=== PATIENT | male | born 1930 | race Asian ===

== ENCOUNTER 2017-02-16 19:08 | Inpatient (IN) | payer MEDICARE, BC ==
[~2017-02-16] VITALS: Ht 157.5 cm; Wt 49.5 kg
[~2017-02-16 19:08] MED LIST: BRIM10DR12 BOTH EYES; FLUO60OI5 TOP; LORA0.5T PO; MENT71OI TP; OMEP20CA16 PO; PRAV40TA76 PO; QUET50TA16 PO
[2017-02-16 21:20] VITALS: Ht 157.5 cm; Wt 49.5 kg
[2017-02-16 21:31] VITALS: BP 154/74; RESP 19
[2017-02-16] MEDS ORDERED: BISACODYL (EC) 5 MG TAB PO PRN (22:00)
[2017-02-16] MEDS ORDERED: MAGNESIUM HYDROXIDE 30ML CUP PO PRN (22:00)
[2017-02-16] MEDS ORDERED: ONDANSETRON 4 MG INJ IV PRN (22:00)
[2017-02-16] MEDS ORDERED: morphine 2 MG INJ IV PRN (22:00)
[2017-02-16] MEDS: AMLODIPINE 5 MG TAB PO SCH (23:13)
[2017-02-16] MEDS: DOCUSATE SODIUM 100 MG CAP PO SCH (23:13)
[2017-02-16] MEDS: QUETIAPINE 25 MG TAB PO SCH (23:13)
[2017-02-16] MEDS: ACETAMINOPHEN 325 MG TAB PO PRN (23:14)
[2017-02-16] MEDS: HEPARIN 5,000 UNIT/0.5 ML SYG SC SCH (23:24)
[2017-02-17 01:58] LABS: ADD UMIC YES; URINE BILIRUBIN (Dip) NEGATIVE (NEGATIVE); URINE BLOOD (Dip) 3+ (NEGATIVE); URINE COLOR LT. YELLOW (YELLOW); URINE GLUCOSE (Dip) NEGATIVE (NEGATIVE); URINE KETONES (Dip) NEGATIVE (NEGATIVE); URINE LEUKOCYTE ESTERASE (Dip) NEGATIVE (NEGATIVE); URINE NITRITE (Dip) NEGATIVE (NEGATIVE); URINE TOTAL PROTEIN (Dip) 1+ (NEGATIVE); URINE UROBILINOGEN (Dip) 1.0 E.U./dL (0.1-1.0)
[2017-02-17 02:15] LABS: SQUAMOUS EPITHELIAL CELL,UR MANY; URINE RBCS >50 /HPF (0)
[2017-02-17 02:16] LABS: BACTERIA,URINE OCCASIONAL
[2017-02-17] MEDS: PANTOPRAZOLE (EC) 40 MG TAB PO SCH (06:16)
[2017-02-17] MEDS: HEPARIN 5,000 UNIT/0.5 ML SYG SC SCH ×3 (06:21→21:09)
[2017-02-17 07:29] LABS: ADD SCAN DIFF NO
[2017-02-17 07:30] VITALS: BP 146/74; RESP 18
[2017-02-17 07:36] LABS: BASOPHILS % 0.2 % (0.0-2.0); EOSINOPHILS # 0.2 10^3/ul (0.0-0.5); EOSINOPHILS % 2.9 % (0.0-7.0); HEMATOCRIT 30.9 % (42.0-52.0); HEMOGLOBIN 10.1 g/dl (14.0-18.0); LYMPHOCYTES # 1.3 10^3/ul (0.8-2.9); LYMPHOCYTES % 21.7 % (15.0-51.0); MEAN CORPUSCULAR HEMOGLOBIN 30.2 pg (29.0-33.0); MEAN CORPUSCULAR HGB CONC 32.7 g/dl (32.0-37.0); MEAN CORPUSCULAR VOLUME 92.5 fl (82.0-101.0); MONOCYTE # 0.6 10^3/ul (0.3-0.9); MONOCYTES % 9.6 % (0.0-11.0); NEUTROPHIL # 3.9 10^3/ul (1.6-7.5); NEUTROPHILS % 65.3 % (39.0-77.0); PLATELET COUNT 310 10^3/UL (140-415); RED BLOOD COUNT 3.34 10^6/ul (4.70-6.10); RED CELL DISTRIBUTION WIDTH 13.7 % (11.5-14.5)
[2017-02-17 07:54] LABS: ALBUMIN 2.7 g/dl (3.3-4.9)
[2017-02-17 07:57] LABS: ALBUMIN/GLOBULIN RATIO 0.81; BILIRUBIN,INDIRECT 0.5 mg/dl (0-1.1); BILIRUBIN,TOTAL 0.5 mg/dl (0.2-1.3); CALCIUM 8.5 mg/dl (8.4-10.2); CREATININE 1.42 mg/dl (0.61-1.24)
[2017-02-17] MEDS ORDERED: BACITRACIN 0.9 GM OINT TOP SCH (09:00)
[2017-02-17] MEDS ORDERED: BACITRACIN 0.5%/ZINC 28.35 GM OINT TOP SCH (09:00)
[2017-02-17] MEDS: DOCUSATE SODIUM 100 MG CAP PO SCH ×2 (10:09→21:00)
[2017-02-17] MEDS: ASPIRIN 81 MG TAB PO SCH (10:09)
[2017-02-17] MEDS: FERROUS SULFATE (EC) 325 MG TAB PO SCH (10:09)
[2017-02-17] MEDS: POLYETHYLENE GLYCOL 17 GM PACKET PO SCH (10:10)
[2017-02-17] MEDS: AMLODIPINE 5 MG TAB PO SCH ×2 (10:10→21:01)
[2017-02-17] MEDS: BACITRACIN 0.9 GM OINT TOP SCH (10:11)
--- NOTE | 2017-02-17 12:49 | CONS ---
DATE OF ADMISSION: 02/16/2017 DATE OF CONSULTATION: 02/17/2017 TYPE OF CONSULTATION:. REHABILITATION POST-ADMISSION PHYSICIAN EVALUATION REHABILITATION IMPAIRMENT CATEGORY: Left subcapital hip fracture with displacement, status post hem iarthroplasty. ACTIVE COMORBIDITIES: 1. Anemia. 2. Dysphagia. 3. Hypertension. 4. History of psychiatric disorder. 5. Urinary tract infection. 6. History of renal failure. 7. Coronary artery disease. 8. Impairments in self-care, mobility and cognition. HISTORY OF PRESENT ILLNESS: The patient is a pleasant 86-year-old gentleman with a history of multi ple medical comorbidities, who is status post a mechanical fall with resultant left subcapital displ aced hip fracture. The patient underwent a left hip hemiarthroplasty on 02/11/2017. His postoperat talita course has been notable for low grade fever, anemia requiring transfusion, and significant impai rments in self-care and mobility as compared to baseline. The patient has been cleared to transfer to the rehabilitation unit for comprehensive interdisciplinary rehab care. FUNCTIONAL HISTORY: Prior to recent events, he was independent in self-care tasks and mobility. Cu rrently, he requires maximal assist for self-care activities, moderate to maximal assist for mobilit y tasks. I have reviewed the preadmission screen and the patient's current functional status is consistent wi th the preadmission screen. SOCIAL HISTORY: The patient lives in an assisted living facility and hopes to return there upon dis charge. PAST MEDICAL HISTORY: 1. Hypertension. 2. Coronary artery disease. 3. History of psychiatric disorder. 4. Chronic kidney disease. CURRENT MEDICATIONS: 1. Apresoline 25 mg p.o. every 4 hours p.r.n. 2. Norvasc 5 mg p.o. b.i.d. 3. MiraLax. 4. Morphine p.r.n. 5. Bacitracin topically. 6. Protonix 40 mg p.o. daily. 7. Aspirin 81 mg p.o. daily. 8. Seroquel 50 mg p.o. at bedtime. 9. Colace 100 mg p.o. b.i.d. 10. Ferrous sulfate 325 p.o. daily. ALLERGIES: THE PATIENT WITH NO KNOWN DRUG ALLERGIES. PHYSICAL EXAMINATION: VITAL SIGNS: The patient is currently afebrile with stable vital signs. HEENT: Extraocular motions are intact. Oropharynx clear. NECK: Supple. LUNGS: Clear anteriorly. CARDIAC: S1, S2. ABDOMEN: Soft, nontender, positive bowel sounds. NEUROLOGIC: He is awake and alert. He is oriented to person only. He will follow simple 1-step co mmands. He demonstrates antigravity strength in bilateral upper extremity and the right lower extre mity. Dorsiflexion and plantar flexion intact on the left. PLAN: The patient has been admitted for comprehensive interdisciplinary acute rehab and is anticipa adonis to tolerate 3 hours of daily therapy in divided doses for at least 5 out of 7 days a week. The treatment plan will include: 1. Physical therapy to focus on bed mobility, transfers, and household ambulation with the goal of having the patient reach standby assist level. 2. Occupational therapy to focus on hygiene, grooming, dressing, bathing, and toileting activities with the goal of having the patient reach standby assist level. 3. Speech therapy for full dysphasia and cognitive evaluation and management with the goal of havin g the patient return to baseline cognition and meet nutritional needs by mouth. 4. Rehabilitation nursing for carryover of therapeutic interventions, the goal of continent of sandrita l and bladder, and the goal of pain adequately managed on oral medications. REHABILITATION BARRIER: Dysphagia. INTERVENTION FOR BARRIER: Speech therapy. ESTIMATED LENGTH OF STAY: 14 days. DISPOSITION GOAL: Home. I acknowledge that I performed a full physical examination on this patient within 24 hours of admiss ion to the rehabilitation unit. I believe the patient is a good candidate for comprehensive interdi sciplinary rehab care and is anticipated to make reasonable goals in a reasonable period of time as outlined above. Dictated By: JUVENTINO VINES/LANI Conf#: [id number] DID#: [id number] CC: KATY HANSEN MD;*EndCC*
--- NOTE | 2017-02-17 18:32 | HP ---
DATE OF ADMISSION: 02/16/2017 REASON FOR ADMISSION: Left hip fracture status post hemiarthroplasty. Comes for rehab. HISTORY OF PRESENT ILLNESS: The patient is an 86-year-old [place] male with history of dementia, h ypertension, dyslipidemia, CKD, anemia, psychiatric disorder who resides at the [facility]. The patient was in usual state of health up until 02/10/2013 when he pres ented to the emergency department at [facility] status post fall. He was found to h ave a left hip fracture. The patient was seen by Dr. Renee and Dr. Fitch for preop clearance and patient underwent left hemiarthroplasty. Postop, the patient was transfused 2 units of PRBC, slowl y improved. It was decided to send him to the acute rehab for physical therapy, occupational therap y and help with activities of daily living. The patient is admitted for further care. PAST MEDICAL HISTORY: Includes CKD, hypertension, psychiatric disorder, dyslipidemia and dementia, also anemia, gastroesophageal reflux disease and history of glaucoma. ALLERGIES: NO KNOWN DRUG ALLERGIES. SURGICAL HISTORY: Left hip hemiarthroplasty. SOCIAL HISTORY: He initially denies tobacco, alcohol or IV drug use, but looking at the old medical records at [facility], he was a former smoker. Again, the patient is a somewhat poor historian. I have been in touch with the patient's on a regular basis while the patient w as at [facility]. FAMILY HISTORY: The patient cannot recall. The patient's parents are . MEDICATIONS: The patient's current medication upon discharge from [facility] includ e the followin. Aspirin 81 mg daily. 2. MiraLax 17 grams daily. 3. Zolpidem 5 daily. 4. Bacitracin daily. 5. Protonix 40 mg daily. 6. Seroquel 50 at bedtime. 7. Colace 100 b.i.d. 8. Norvasc 5 mg b.i.d. 9. Tylenol p.r.n. 10. Zofran p.r.n. 11. Heparin 5000 units subq q.12h. 12. Dulcolax p.r.n. 13. Hydralazine p.r.n. 14. Milk of magnesia p.r.n. 15. Morphine sulfate p.r.n. REVIEW OF SYSTEMS: Limited secondary to patient's condition. Upon evaluation, the patient currentl y with no complaints, currently denies any pain, denies any chest pain or shortness of breath. Agai n, the patient is a poor historian. PHYSICAL EXAMINATION: VITAL SIGNS: Temperature yesterday evening: T-max was 100.2, so he had a low grade fever, recent te mperature this morning, temperature 98.3, pulse is 79, respirations 18, blood pressure 146/74, satur ation 97% on room air. GENERAL: The patient is pale, in no acute distress. CARDIOVASCULAR: S1 and S2. Positive systolic ejection murmur heard throughout. LUNGS: Clear bilaterally. ABDOMEN: Soft, nontender. EXTREMITIES: No clubbing, cyanosis, or edema. Lower extremity in a special support. LABORATORY DATA: White count is 6, hemoglobin 10.1, hematocrit 31, platelet count 310, neutrophils 65%, lymphocytes 22%. Chemistry: Sodium is 143, potassium 4.0, chloride 104, bicarbonate 30, BUN i s 40, creatinine 1.42, glucose of 100, calcium 8.5, AST 36, ALT 22, alkaline phosphatase 113. Album in 2.7. Prealbumin is low at 13. UA shows RBC greater than 50, WBC 0 to 2. Many epithelial cells, occasional bacteria. Urine hemoglobin +3, slightly cloudy urine. MRSA screening is pending. Look ing at all records here at [facility], CT scan of abdomen and pelvis on 10/18/2015 , shows rectum is markedly distended and stool filled suggestive of severe constipation with choleli thiasis, coronary artery calcification, possibly mildly enlarged. Renal ultrasound in 2015, just sh ows small nonobstructing bilateral renal calculi, otherwise unremarkable study. Carotid ultrasound in 2015, also shows mild to moderate atherosclerosis disease bilaterally, no hemodynamically signifi cant stenosis. CAT scan back in 2015, also shows moderate cerebral volume loss and scattered and mo derate intracranial atherosclerosis and mild chronic small vessel ischemic changes. ASSESSMENT AND PLAN: 1. This is an 86-year-old [place] male with history of chronic kidney disease, dementia, anemia, p sychiatric disorder, status post left hip hemiarthroplasty secondary to fracture. 2. Status post left hip hemiarthroplasty patient to undergo physical therapy, occupational therapy and help with activities of daily living with a goal for him to go back to the assisted living facil it. Will continue deep vein thrombosis prophylaxis and gastrointestinal prophylaxis. If he is ref using heparin, may consider oral deep venous thrombosis prophylaxis such as Xarelto. 3. Anemia. Monitor hemoglobin and hematocrit. Patient is status post 2 units of PRBC at [facility]. H and H appears to be stable. 4. Chronic kidney disease, observe. May consider fluid challenge. 5. Moderate protein malnutrition with low prealbumin. Try to maximize the patient's nutrition stat us. Dietitian will be consulted, add supplements. 6. The patient will be placed on deep vein thrombosis prophylaxis and gastrointestinal prophylaxis. 7. Psychiatric disorder. Continue Seroquel at night. 8. Microscopic hematuria. We will follow up urine culture results. Recent CT scan of the chest, a bdomen and pelvis done at [facility] did not reveal any significant abnormality besi torsten constipation. We will communicate with the patient's regarding patient's condition and francois n of care. 9. Hypertension. Continue amlodipine. Aspirin for cardiac protection and p.r.n. hydralazine. Josh p patient comfortable with pain medication as needed. The patient hopefully will participate with p hysical therapy. 10. Low grade fever. Will observe. This may be atelectasis versus other. White count remains nor mal. We will follow. Dictated By: KATY CORNEJO/LANI Conf#: [id number] DID#: [id number]
[2017-02-17 19:42] VITALS: BP 149/69; RESP 20
[2017-02-17] MEDS: ACETAMINOPHEN 325 MG TAB PO PRN (20:59)
[2017-02-17] MEDS: QUETIAPINE 25 MG TAB PO SCH (21:00)
--- NOTE | 2017-02-17 23:11 | CONS ---
DATE OF ADMISSION: 02/16/2017 DATE OF CONSULTATION: 02/17/2017 TYPE OF CONSULTATION: Psychological. REFERRING PHYSICIAN: Zoey Gamez MD CONSULTING PSYCHOLOGIST: Dalia Vasquez, PhD REASON FOR CONSULTATION: This consultation was requested by Dr. Yuriy Gamez, in order to evaluate the cognitive and emotional functioning of this patient related to his present medical condition. HISTORY OF PRESENT ILLNESS: The patient is an 86-year-old male. The patient has a history of hyper tension, CKD, psychiatric disorder, and dyslipidemia. The patient does currently reside in an [facility] living facility. The patient had sustained a fall and did fracture his left hip. The patient w as cleared medically and then transferred to the acute rehabilitation unit for acute multidisciplina ry rehabilitation. The patient was pleasant and motivated to get better. The patient did want to t ry to function as well as he could. The patient was very cooperative. FAMILY/SOCIAL HISTORY: The patient reports that he is living in an assisted living facility. The p atient actually thought that he was living in [place] at the present time. The patient did show good deal of confusion. The patient does want to return home to the assisted living facility when he is discharged. MEDICATIONS: The patient is currently on Seroquel 50 mg at bedtime. SUBSTANCE USE: The patient reports that he does not use alcohol or other drugs. The patient report s he does not smoke. MENTAL STATUS EXAMINATION: APPEARANCE: The patient was seen in his wheelchair. He was of average height and weight. The jonathan ent has alvarado hair, with a olivia and mustache. The patient is right-handed. BEHAVIOR: The patient was cooperative during the consultation. The patient, even though confused, did try to answer all questions presented to him by the interviewer. MOOD AND AFFECT: The patient's mood appears to be depressed. Affect does appear to be slightly anx ious. PERCEPTION: The patient reports no hallucinations or delusions. The patient was alert to person, b ut not exactly to place, situation, and time. MEMORY AND COGNITION: The patient's memory and cognition appear to be impaired. He did have diffic ulty recalling recent and remote events. The patient did think that he was living in a home in [facility]. The patient could not state the hospital name. The patient could not say the month or the year . INTELLIGENCE: Appears to fall in the average range when he was functioning adequately. INSIGHT: Poor. THOUGHT CONTENT: The patient is concerned about his present medical condition, the patient does wan t to return to his previous level of functioning, and does want to return back to his previous livin g situation. The patient is confused and does not really know what is happening around him at the p resent time. DISCUSSION: The patient may be able to benefit from some cognitive/behavioral psychotherapy while solitario wells is on the unit. This psychotherapy would focus on his cognition and mood, would be an attempt to help him increase his level of understanding and focus, as well as try to help him increase his mood . DIAGNOSTIC IMPRESSION: 1. 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 2. F03.90: Unspecified dementia without behavioral disturbance. Thank you very much, Dr. Yuriy Gamez, for referring this individual. Please do not hesitate to ca ll if you have any additional questions. Dictated By: DALIA VASQUEZ PHD SHARMILA/LANI Conf#: [id number] DID#: [id number]
[2017-02-18] MEDS: PANTOPRAZOLE (EC) 40 MG TAB PO SCH (05:33)
[2017-02-18 07:30] VITALS: BP 164/75; RESP 18
[2017-02-18] MEDS: POLYETHYLENE GLYCOL 17 GM PACKET PO SCH (09:54)
[2017-02-18] MEDS: FERROUS SULFATE (EC) 325 MG TAB PO SCH (09:54)
[2017-02-18] MEDS: DOCUSATE SODIUM 100 MG CAP PO SCH ×2 (09:54→20:50)
[2017-02-18] MEDS: BACITRACIN 0.9 GM OINT TOP SCH (09:54)
[2017-02-18] MEDS: AMLODIPINE 5 MG TAB PO SCH ×2 (09:55→20:53)
[2017-02-18] MEDS: ASPIRIN 81 MG TAB PO SCH (09:55)
[2017-02-18] MEDS: HEPARIN 5,000 UNIT/0.5 ML SYG SC SCH ×2 (09:57→20:56)
--- NOTE | 2017-02-18 13:28 | CONS ---
Date/Time of Note Date/Time of Note DATE: 02/18/17 TIME: 13:26 Consult Date/Type/Reason Admit Date/Time Feb 16, 2017 at 20:53 Initial Consult Date Subjective Patient comfortable Objective pulm-cta abd-soft max/dep transfer Vital Signs Date Time Temp Pulse Resp B/P Pulse Ox O2 Delivery O2 Flow Rate FiO2 02/17/17 19:42 98.0 69 20 149/69 99 Intake and Output 02/17/17 02/17/17 02/18/17 15:00 23:00 07:00 Intake Total 200 ml 560 ml Balance 200 ml 560 ml Results/Medications Result Diagram: 02/17/17 0612 02/17/17 0612 Medications Current Medications Ondansetron HCl (Zofran Inj) 4 mg Q4H PRN IV NAUSEA AND/OR VOMITING; Start at 22:00 Pantoprazole (Protonix Tab) 40 mg DAILY@06 PO Last administered on 02/18/17 05 :33; Admin Dose 40 MG; Start 02/17/17 at 06:00 Aspirin (Aspirin) 81 mg DAILY PO Last administered on 02/18/17 09:55; Admin Dose 81 MG; Start 02/17/17 at 09:00 Quetiapine Fumarate (Seroquel) 50 mg HS PO Last administered on 02/17/17 21:00 ; Admin Dose 50 MG; Start 02/16/17 at 23:00 Docusate Sodium (Colace) 100 mg BID PO Last administered on 02/18/17 09:54; Admin Dose 100 MG; Start 02/16/17 at 23:00 Bisacodyl (Dulcolax) 5 mg DAILY PRN PO CONSTIPATION; Start 02/16/17 at 22:00 Hydralazine HCl (Apresoline) 25 mg Q4 PRN PO ELEVATED SYSTOLIC BP; Start at 22:00 Amlodipine Besylate (Norvasc) 5 mg BID PO Last administered on 02/18/17 09:55 ; Admin Dose 5 MG; Start 02/16/17 at 23:00 Polyethylene Glycol (Miralax) 17 gm DAILY PO Last administered on 02/18/17 09: 54; Admin Dose 17 GM; Start 02/17/17 at 09:00 Magnesium Hydroxide (Milk Of Mag) 30 ml DAILY PRN PO CONSTIPATION; Start at 22:00 Morphine Sulfate (morphine) 2 mg Q8 PRN IV PAIN LEVEL 7-10; Start 02/16/17 at 22:00 Ferrous Sulfate (Ferrous Sulfate (Ec)) 325 mg DAILY PO Last administered on 09:54; Admin Dose 325 MG; Start 02/17/17 at 09:00 Acetaminophen (Tylenol Tab) 650 mg Q6H PRN PO PAIN AND OR ELEVATED TEMP Last administered on 02/17/17 20:59; Admin Dose 650 MG; Start 02/16/17 at 22:30 Bacitracin (Bacitracin Oint (Ud)) 1 applic AM TOP Last administered on 09:54; Admin Dose 1 APPLIC; Start 02/17/17 at 09:00 Heparin Sodium (Porcine) (Heparin (5000 Units/0.5 ml)) 5,000 unit Q12 SC Last administered on 02/18/17 09:57; Admin Dose 5,000 UNIT; Start 02/17/17 at 21:00 Assessment/Plan Additional Assessment/Plan Rehab- Left subcapital hip fracture with displacement, status post hemiarthroplasty. Continue rehab activities Anemia. Dysphagia-speech therapy Hypertension. History of psychiatric disorder. Urinary tract infection. Coronary artery disease. JUEVNTINO CARR MD Feb 18, 2017 13:28
--- NOTE | 2017-02-18 19:51 | PN ---
DATE: 02/17/2017 SUBJECTIVE: The patient seen and overall with no complaints. Case discussed in detail with nursing staff. The patient needs assistance with feeding as he is alert to himself mostly, confused. Need s a lot of care as discussed with nursing staff. PHYSICAL EXAMINATION: VITAL SIGNS: The patient's temperature 97.5, pulse 65, respirations 18, blood pressure 164/75, satu ration 100% on room air. GENERAL: No acute distress. HEENT: Normocephalic, atraumatic. The patient is pale. CARDIOVASCULAR: S1, S2. Regular rate. LUNGS: Clear. ABDOMEN: Soft, nontender. EXTREMITIES: No clubbing, cyanosis or edema. LABORATORY DATA: Labs dated yesterday were reviewed. BUN and creatinine were 40 over 1.42 with a p realbumin of 13. UA shows RBCs greater than 50; nitrite, leukocyte esterase negative. Urine cultur e, MRSA of the nares were negative. MEDICATIONS: Include: 1. Heparin 5000 units subQ q.12. 2. Aspirin 81 mg daily. 3. MiraLax 17 grams daily. 4. Ferrous sulfate 300 mg daily. 5. Bacitracin daily. 6. Protonix 40 mg daily. 7. Seroquel 50 at bedtime. 8. Colace 100 b.i.d. 9. Norvasc 5 mg b.i.d. 10. Tylenol p.r.n. 11. Zofran p.r.n. 12. Dulcolax p.r.n. 13. Hydralazine p.r.n. 14. Milk of magnesia p.r.n. 15. Morphine p.r.n. ASSESSMENT AND PLAN: This is an 86-year-old [place] male with history of chronic kidney disease, d ementia, anemia, psychiatric disorder, status post left hip hemiarthroplasty secondary to fracture. 1. Status post left hip hemiarthroplasty. Undergoing physical therapy, occupational therapy, speec h therapy. Help with activities of daily living. 2. Continue deep vein thrombosis prophylaxis and gastrointestinal prophylaxis. 3. Anemia. Continue iron supplements. Monitor hemoglobin and hematocrit. 4. Chronic kidney disease with acute component possibly. Monitor patient's p.o. intake. Follow up electrolytes and kidney function soon. 5. Moderate protein malnutrition with low albumin. Try to maximize the patient's nutrition status. Needs help with feeding. 6. Psychiatric disorder. Continue Seroquel at night. I appreciate Dr. Vasquez's psychology evaluati on. Impression was mood disorder due to hip fracture with depressive features, unspecified dementia without behavioral disturbances. 7. Afebrile, currently no evidence of infection. Continue incentive spirometer as tolerated. Cont inue to monitor conditions. Overall appears to be stable. 8. Hypertension. Titrate medications up as currently he is taking amlodipine 5 mg daily. May put him on routine hydralazine. We will follow. Dictated By: KATY CORNEJO/LANI Conf#: [id number] DID#: [id number]
[2017-02-18 20:00] VITALS: BP 145/77; RESP 20
[2017-02-18] MEDS: QUETIAPINE 25 MG TAB PO SCH (20:54)
[2017-02-19] MEDS: PANTOPRAZOLE (EC) 40 MG TAB PO SCH (06:01)
[2017-02-19 07:47] VITALS: BP 144/69; RESP 18
[2017-02-19] MEDS: BACITRACIN 0.9 GM OINT TOP SCH (09:00)
[2017-02-19] MEDS: POLYETHYLENE GLYCOL 17 GM PACKET PO SCH (09:34)
[2017-02-19] MEDS: ASPIRIN 81 MG TAB PO SCH (09:34)
[2017-02-19] MEDS: AMLODIPINE 5 MG TAB PO SCH ×2 (09:35→21:13)
[2017-02-19] MEDS: FERROUS SULFATE (EC) 325 MG TAB PO SCH (09:35)
[2017-02-19] MEDS: DOCUSATE SODIUM 100 MG CAP PO SCH ×2 (09:35→21:12)
[2017-02-19] MEDS: HEPARIN 5,000 UNIT/0.5 ML SYG SC SCH ×2 (09:38→21:20)
--- NOTE | 2017-02-19 12:51 | CONS ---
Date/Time of Note Date/Time of Note DATE: 02/19/17 TIME: 12:50 Consult Date/Type/Reason Admit Date/Time Feb 16, 2017 at 20:53 Subjective Comfortable Objective pulm- cta max assist Vital Signs Date Time Temp Pulse Resp B/P Pulse Ox O2 Delivery O2 Flow Rate FiO2 02/19/17 07:47 98.0 68 18 144/69 94 Intake and Output 02/18/17 02/18/17 02/19/17 15:00 23:00 07:00 Intake Total 620 ml 240 ml Balance 620 ml 240 ml Results/Medications Result Diagram: 02/17/1761102/17/17611 Medications Current Medications Ondansetron HCl (Zofran Inj) 4 mg Q4H PRN IV NAUSEA AND/OR VOMITING; Start at 22:00 Pantoprazole (Protonix Tab) 40 mg DAILY@06 PO Last administered on 02/19/17 06 :01; Admin Dose 40 MG; Start 02/17/17 at 06:00 Aspirin (Aspirin) 81 mg DAILY PO Last administered on 02/19/17 09:34; Admin Dose 81 MG; Start 02/17/17 at 09:00 Quetiapine Fumarate (Seroquel) 50 mg HS PO Last administered on 02/18/17 20:54 ; Admin Dose 50 MG; Start 02/16/17 at 23:00 Docusate Sodium (Colace) 100 mg BID PO Last administered on 02/19/17 09:35; Admin Dose 100 MG; Start 02/16/17 at 23:00 Bisacodyl (Dulcolax) 5 mg DAILY PRN PO CONSTIPATION Last administered on 20:54; Admin Dose 5 MG; Start 02/16/17 at 22:00 Hydralazine HCl (Apresoline) 25 mg Q4 PRN PO ELEVATED SYSTOLIC BP; Start at 22:00 Amlodipine Besylate (Norvasc) 5 mg BID PO Last administered on 02/19/17 09:35 ; Admin Dose 5 MG; Start 02/16/17 at 23:00 Polyethylene Glycol (Miralax) 17 gm DAILY PO Last administered on 02/19/17 09: 34; Admin Dose 17 GM; Start 02/17/17 at 09:00 Magnesium Hydroxide (Milk Of Mag) 30 ml DAILY PRN PO CONSTIPATION Last administered on 02/19/17 06:01; Admin Dose 30 ML; Start 02/16/17 at 22:00 Morphine Sulfate (morphine) 2 mg Q8 PRN IV PAIN LEVEL 7-10; Start 02/16/17 at 22:00 Ferrous Sulfate (Ferrous Sulfate (Ec)) 325 mg DAILY PO Last administered on 09:35; Admin Dose 325 MG; Start 02/17/17 at 09:00 Acetaminophen (Tylenol Tab) 650 mg Q6H PRN PO PAIN AND OR ELEVATED TEMP Last administered on 02/17/17 20:59; Admin Dose 650 MG; Start 02/16/17 at 22:30 Bacitracin (Bacitracin Oint (Ud)) 1 applic AM TOP Last administered on 09:54; Admin Dose 1 APPLIC; Start 02/17/17 at 09:00 Heparin Sodium (Porcine) (Heparin (5000 Units/0.5 ml)) 5,000 unit Q12 SC Last administered on 02/19/17 09:38; Admin Dose 5,000 UNIT; Start 02/17/17 at 21:00 Hydralazine HCl (Apresoline) 25 mg TID PO Last administered on 02/19/17 09:36 ; Admin Dose 25 MG; Start 02/18/17 at 21:00 Assessment/Plan Additional Assessment/Plan Rehab- Left subcapital hip fracture with displacement, status post hemiarthroplasty. Increase rehab activities as tolerated Anemia. Dysphagia-speech therapy Hypertension. History of psychiatric disorder. Urinary tract infection. Coronary artery disease. JUVENTINO CARR MD Feb 19, 2017 12:51
--- NOTE | 2017-02-19 17:50 | PN ---
DATE: 02/19/2017 SUBJECTIVE: Patient seen, no complaints. He had a temperature of 100.2 upon admission, but since t hen he is afebrile. PHYSICAL EXAMINATION: VITAL SIGNS: Temperature 98, pulse 60, respirations 18, blood pressure 144/69, saturation 94%. GENERAL: No acute distress. HEENT: Normocephalic, atraumatic. The patient is pale. CARDIOVASCULAR: Positive S1 and S2, regular rate. LUNGS: Clear. ABDOMEN: Soft, nontender. EXTREMITIES: No clubbing, cyanosis, or edema. LABORATORY DATA: On admission revealed white count was 6, hemoglobin 10.1, prealbumin was low at 13 . Urine culture negative. MRSA of the nares negative. MEDICATIONS: Include: 1. Hydralazine 25 t.i.d. 2. Heparin 5000 subq q. 3. Aspirin daily. 4. MiraLax 17 grams daily. 5. Ferrous sulfate 325 mg daily. 6. Bacitracin daily. 7. Protonix 40 mg daily. 8. Seroquel 50 at bedtime. 9. Colace 100 b.i.d. 10. Norvasc 5 mg b.i.d. 11. Tylenol p.r.n. 12. Zofran p.r.n. 13. Colace p.r.n. 14. Hydralazine p.r.n. 15. Milk of magnesia p.r.n. 16. Morphine p.r.n. ASSESSMENT AND PLAN: 1. This is an 86-year-old Mong[place]ian male with history of chronic kidney disease, dementia, anemia, p sychiatric disorder, status post left hip hemiarthroplasty secondary to fracture. 2. Status post left hip hemiarthroplasty. Continue physical therapy, occupational therapy, pain co ntrol. 3. Continue deep vein thrombosis prophylaxis and gastrointestinal prophylaxis. 4. Anemia. Continue iron supplements. Monitor hemoglobin and hematocrit, check a.m. labs tomorrow . 5. Chronic kidney disease, monitor electrolytes. 6. Moderate protein malnutrition with low prealbumin. Try to maximize the patient's nutrition stat us. Dietitian to follow. 7. Psychiatric disorder. Continue Seroquel. 8. Hypertension. I added hydralazine routine, blood pressure improved. 9. Continue stool softeners. We will follow. Dictated By: KATY CORNEJO/LANI Conf#: [id number] DID#: [id number]
[2017-02-19] MEDS ORDERED: BISACODYL 10 MG SUPP PR PRN (19:30)
[2017-02-19 19:50] VITALS: BP 123/59; RESP 19
[2017-02-19] MEDS: ACETAMINOPHEN 325 MG TAB PO PRN (21:11)
[2017-02-19] MEDS: QUETIAPINE 25 MG TAB PO SCH (21:12)
[2017-02-20] MEDS: PANTOPRAZOLE (EC) 40 MG TAB PO SCH (05:18)
[2017-02-20 06:40] LABS: ADD SCAN DIFF NO
[2017-02-20 06:44] LABS: BASOPHILS % 0.3 % (0.0-2.0); EOSINOPHILS # 0.2 10^3/ul (0.0-0.5); EOSINOPHILS % 2.8 % (0.0-7.0); HEMATOCRIT 32.1 % (42.0-52.0); HEMOGLOBIN 10.5 g/dl (14.0-18.0); LYMPHOCYTES # 1.4 10^3/ul (0.8-2.9); LYMPHOCYTES % 22.2 % (15.0-51.0); MEAN CORPUSCULAR HEMOGLOBIN 30.3 pg (29.0-33.0); MEAN CORPUSCULAR HGB CONC 32.7 g/dl (32.0-37.0); MEAN CORPUSCULAR VOLUME 92.8 fl (82.0-101.0); MEAN PLATELET VOLUME 8.9 fl (7.4-10.4); MONOCYTE # 0.5 10^3/ul (0.3-0.9); MONOCYTES % 7.3 % (0.0-11.0); NEUTROPHIL # 4.3 10^3/ul (1.6-7.5); NEUTROPHILS % 66.3 % (39.0-77.0); PLATELET COUNT 426 10^3/UL (140-415); RED BLOOD COUNT 3.46 10^6/ul (4.70-6.10); RED CELL DISTRIBUTION WIDTH 13.9 % (11.5-14.5); WHITE BLOOD COUNT 6.4 10^3/ul (4.8-10.8)
[2017-02-20 06:55] LABS: POTASSIUM 4.7 mmol/L (3.5-5.1)
[2017-02-20 06:58] LABS: CREATININE 1.39 mg/dl (0.61-1.24)
[2017-02-20 06:59] LABS: CALCIUM 8.6 mg/dl (8.4-10.2)
[2017-02-20 07:00] LABS: MAGNESIUM 2.6 mg/dl (1.7-2.5); PHOSPHORUS 4.1 mg/dl (2.5-4.9)
[2017-02-20] MEDS: DOCUSATE SODIUM 100 MG CAP PO SCH ×2 (09:00→20:45)
[2017-02-20] MEDS: POLYETHYLENE GLYCOL 17 GM PACKET PO SCH (09:00)
[2017-02-20] MEDS: FERROUS SULFATE (EC) 325 MG TAB PO SCH (09:19)
[2017-02-20] MEDS: AMLODIPINE 5 MG TAB PO SCH ×2 (09:19→20:44)
[2017-02-20] MEDS: ASPIRIN 81 MG TAB PO SCH (09:19)
[2017-02-20] MEDS: HEPARIN 5,000 UNIT/0.5 ML SYG SC SCH ×2 (09:27→20:50)
[2017-02-20] MEDS: BACITRACIN 0.9 GM OINT TOP SCH (10:51)
--- NOTE | 2017-02-20 13:30 | PN ---
DATE: 02/20/2017 SUBJECTIVE: The patient seen sitting now at the dining table waiting to eat. Also, patient is in g ood mood. There are no complaints. PHYSICAL EXAMINATION: VITAL SIGNS: Temperature 97.6, pulse 69, respirations 19, blood pressure 122/59, saturation 96%. GENERAL: No acute distress. The patient is pale. CARDIOVASCULAR: S1, S2, regular rate. LUNGS: Clear. ABDOMEN: Soft, nontender. EXTREMITIES: No clubbing, cyanosis, or edema. LABORATORY DATA: White count 6.4, hemoglobin 10.5, hematocrit 32, platelet count is higher at 426, neutrophils 66%, lymphocytes 22%. Chemistry: Sodium is 133, potassium 4.7, chloride 100, bicarbona te 27, BUN is 46, creatinine 1.39. Magnesium is 2.6. Prealbumin is 13. Urine culture and MRSA scr eening were negative on admission. CURRENT MEDICATIONS: Include: 1. Dulcolax p.r.n. 2. Hydralazine 25 t.i.d. 3. Heparin 5000 q.12h. 4. Aspirin 81 mg daily. 5. MiraLax 17 grams daily. 6. Ferrous sulfate 325 daily. 7. Bacitracin as directed daily. 8. Protonix 40 mg daily. 9. Seroquel 50 at bedtime. 10. Colace 100 b.i.d. 11. Norvasc 5 mg b.i.d. 12. Tylenol p.r.n. 13. Zofran p.r.n. 14. Dulcolax p.r.n. 15. Hydralazine p.r.n. 16. Milk of magnesia p.r.n. 17. Morphine p.r.n. ASSESSMENT AND PLAN: This is an 86-year-old [place] male with history of chronic kidney disease, d ementia, anemia, psychiatric disorder, status post left hip hemiarthroplasty secondary to fracture. 1. Status post left hip hemiarthroplasty. Continue physical therapy, occupational therapy and pain control. 2. Continue deep vein thrombosis prophylaxis and gastrointestinal prophylaxis. 3. Anemia, on iron supplements. Hemoglobin and hematocrit are stable. 4. Chronic kidney disease, stable. Observe, monitor electrolytes, monitor patient's p.o. intake. 5. Moderate protein malnutrition. Dietitian to follow. 6. Psychiatric. Continue Seroquel at night. 7. Hypertension, currently overall blood pressure is under control with the above blood pressure re gimen. 8. Continue with stool softeners and supportive care. Overall, clinically doing better. We will f juvelow his progress closely. Dictated By: KATY CORNEJO/LANI Conf#: [id number] DID#: [id number]
--- NOTE | 2017-02-20 14:19 | PN ---
Date/Time of Note Date/Time of Note DATE: 02/20/17 TIME: 14:15 Assessment/Plan VTE Prophylaxis VTE Prophylaxis Intervention: heparin Lines/Catheters IV Catheter Type (from Nrs): Saline Lock Urinary Cath still in place: No Assessment/Plan Assessment/Plan 1. Status post fall sustaining displaced left subcapital hip fracture, treated surgically with left hip hemiarthroplasty. With impaired mobility/gait/ADLs. Continue PT/OT. Currently dependent for bed mobility and transfers. Sitting balance fair. 2. Acute postoperative pain. Pain controlled, continue tylenol as needed. 3. Anemia. On iron supplementation. Continue to monitor hemoglobin/hematocrit, improving on labs today. Internal medicine following. 4. Dysphagia. Continue modified diet per speech therapy. Continue ST for swallowing training. 5. Hypertension. Monitor BP. Internal medicine managing. 6. History of psychiatric disorder. Continue current regimen. Mood stable at this time, monitor. 7. Chronic kidney disease. Continue to monitor renal function. Subjective 24 Hr Interval Summary Free Text/Dictation Rehab progress note Subjective: Reports minimal pain in left hip. No acute overnight events reported by nursing staff. ROS: Denies headache, no dizziness, no constipation, no abdominal pain, no chest pain, no shortness of breath, no dysuria. Exam/Review of Systems Vital Signs Vitals Vital Signs Date Time Temp Pulse Resp B/P Pulse Ox O2 Delivery O2 Flow Rate FiO2 02/19/17 19:50 97.6 69 19 123/59 96 Intake and Output 02/19/17 02/19/17 02/20/17 15:00 23:00 07:00 Intake Total 480 ml 240 ml 400 ml Balance 480 ml 240 ml 400 ml Exam General: Awake, alert, no acute distress CV: Regular rate, s1s2 Lungs: Clear to auscultation, no wheezing or crackles Abdomen soft, nontender Extremities without cyanosis, no distal edema Neuro: Follows simple commands. Antigravity strength in the upper extremities. Wiggles toes on the left. Results Result Diagram: 02/20/17 0545 02/20/17 0545 Results 24 hrs Laboratory Tests Test 02/20/17 05:45 White Blood Count 6.4 Red Blood Count 3.46 L Hemoglobin 10.5 L Hematocrit 32.1 L Mean Corpuscular Volume 92.8 Mean Corpuscular Hemoglobin 30.3 Mean Corpuscular Hemoglobin Concent 32.7 Red Cell Distribution Width 13.9 Platelet Count 426 #H Mean Platelet Volume 8.9 Neutrophils % 66.3 Lymphocytes % 22.2 Monocytes % 7.3 Eosinophils % 2.8 Basophils % 0.3 Nucleated Red Blood Cells % 0.0 Neutrophils # 4.3 Lymphocytes # 1.4 Monocytes # 0.5 Eosinophils # 0.2 Basophils # 0.0 Nucleated Red Blood Cells # 0.0 Sodium Level 133 L Potassium Level 4.7 Chloride Level 100 Carbon Dioxide Level 27 Anion Gap 11 Blood Urea Nitrogen 46 H Creatinine 1.39 H Glucose Level 100 Calcium Level 8.6 Phosphorus Level 4.1 Magnesium Level 2.6 H Medications Medications Current Medications Ondansetron HCl (Zofran Inj) 4 mg Q4H PRN IV NAUSEA AND/OR VOMITING; Start at 22:00 Pantoprazole (Protonix Tab) 40 mg DAILY@06 PO Last administered on 02/20/17 05 :18; Admin Dose 40 MG; Start 02/17/17 at 06:00 Aspirin (Aspirin) 81 mg DAILY PO Last administered on 02/20/17 09:19; Admin Dose 81 MG; Start 02/17/17 at 09:00 Quetiapine Fumarate (Seroquel) 50 mg HS PO Last administered on 02/19/17 21:12 ; Admin Dose 50 MG; Start 02/16/17 at 23:00 Docusate Sodium (Colace) 100 mg BID PO Last administered on 02/19/17 21:12; Admin Dose 100 MG; Start 02/16/17 at 23:00 Bisacodyl (Dulcolax) 5 mg DAILY PRN PO CONSTIPATION Last administered on 20:54; Admin Dose 5 MG; Start 02/16/17 at 22:00 Hydralazine HCl (Apresoline) 25 mg Q4 PRN PO ELEVATED SYSTOLIC BP; Start at 22:00 Amlodipine Besylate (Norvasc) 5 mg BID PO Last administered on 02/20/17 09:19 ; Admin Dose 5 MG; Start 02/16/17 at 23:00 Polyethylene Glycol (Miralax) 17 gm DAILY PO Last administered on 02/19/17 09: 34; Admin Dose 17 GM; Start 02/17/17 at 09:00 Magnesium Hydroxide (Milk Of Mag) 30 ml DAILY PRN PO CONSTIPATION Last administered on 02/19/17 06:01; Admin Dose 30 ML; Start 02/16/17 at 22:00 Morphine Sulfate (morphine) 2 mg Q8 PRN IV PAIN LEVEL 7-10; Start 02/16/17 at 22:00 Ferrous Sulfate (Ferrous Sulfate (Ec)) 325 mg DAILY PO Last administered on 09:19; Admin Dose 325 MG; Start 02/17/17 at 09:00 Acetaminophen (Tylenol Tab) 650 mg Q6H PRN PO PAIN AND OR ELEVATED TEMP Last administered on 02/19/17 21:11; Admin Dose 650 MG; Start 02/16/17 at 22:30 Bacitracin (Bacitracin Oint (Ud)) 1 applic AM TOP Last administered on 10:51; Admin Dose 1 APPLIC; Start 02/17/17 at 09:00 Heparin Sodium (Porcine) (Heparin (5000 Units/0.5 ml)) 5,000 unit Q12 SC Last administered on 02/20/17 09:27; Admin Dose 5,000 UNIT; Start 02/17/17 at 21:00 Hydralazine HCl (Apresoline) 25 mg TID PO Last administered on 02/20/17 12:45 ; Admin Dose 25 MG; Start 02/18/17 at 21:00 Bisacodyl (Dulcolax Supp) 10 mg DAILY PRN [place] CONSTIPATION Last administered on 02/19/17 23:58; Admin Dose 10 MG; Start 02/19/17 at 19:30 NORY FOSTER Feb 20, 2017 14:19
[2017-02-20 19:57] VITALS: BP 153/70; RESP 21
[2017-02-20] MEDS: QUETIAPINE 25 MG TAB PO SCH (20:44)
[2017-02-21] MEDS: PANTOPRAZOLE (EC) 40 MG TAB PO SCH (06:41)
[2017-02-21 07:34] VITALS: BP 159/77; RESP 18
[2017-02-21] MEDS: ASPIRIN 81 MG TAB PO SCH (08:42)
[2017-02-21] MEDS: FERROUS SULFATE (EC) 325 MG TAB PO SCH (08:42)
[2017-02-21] MEDS: POLYETHYLENE GLYCOL 17 GM PACKET PO SCH (08:43)
[2017-02-21] MEDS: DOCUSATE SODIUM 100 MG CAP PO SCH ×2 (08:43→21:00)
[2017-02-21] MEDS: AMLODIPINE 5 MG TAB PO SCH ×2 (08:44→20:47)
[2017-02-21] MEDS: BACITRACIN 0.9 GM OINT TOP SCH (08:45)
[2017-02-21] MEDS: HEPARIN 5,000 UNIT/0.5 ML SYG SC SCH ×2 (08:53→20:50)
--- NOTE | 2017-02-21 11:15 | PN ---
Date/Time of Note Date/Time of Note DATE: 02/21/17 TIME: 11:13 Assessment/Plan VTE Prophylaxis VTE Prophylaxis Intervention: heparin Lines/Catheters IV Catheter Type (from Nrs): Saline Lock Urinary Cath still in place: No Assessment/Plan Assessment/Plan 1. Status post fall with left subcapital displaced hip fracture, status post hip hemiarthroplasty. With impaired mobility/gait/ADLs. Continue PT/OT. Moderate assistance for grooming and upper body bathing, requires mod/max cues for sequencing.. 2. Acute postoperative pain syndrome. Controlled. Continue pain regimen. 3. Anemia. On iron supplementation. Monitor hemoglobin/hematocrit, improving on last labs. 4. Dysphagia. Continue speech therapy. Maintain aspiration precautions. 5. Hypertension. Monitor BP, intermittently elevated. Internal medicine managing. 6. History of psychiatric disorder. Continue to monitor mood, stable at this time. 7. Chronic kidney disease. Continue to monitor renal function, internal medicine following. Subjective 24 Hr Interval Summary Free Text/Dictation Rehab progress note Subjective: No new complaints. Reports minimal pain in left hip. ROS: Denies headache, no dizziness, no chest pain, no shortness of breath, no chills, no abdominal pain. Exam/Review of Systems Vital Signs Vitals Vital Signs Date Time Temp Pulse Resp B/P Pulse Ox O2 Delivery O2 Flow Rate FiO2 02/21/17 07:34 97.8 78 18 159/77 96 Intake and Output 02/20/17 02/20/17 02/21/17 14:59 22:59 06:59 Intake Total 500 ml 200 ml Output Total 402 ml Balance 500 ml -202 ml Exam General: Awake, alert, no acute distress CV: Regular rate, s1s2 audible Lungs: Symmetrical air entry bilaterally, no wheezing or crackles Abdomen soft, nontender, +bowel sounds Extremities without cyanosis, no new swelling Neuro: No new focal changes. Follows simple commands. Results Result Diagram: 02/20/1745 02/20/1745 Medications Medications Current Medications Ondansetron HCl (Zofran Inj) 4 mg Q4H PRN IV NAUSEA AND/OR VOMITING; Start at 22:00 Pantoprazole (Protonix Tab) 40 mg DAILY@06 PO Last administered on 02/21/17t 06 :41; Admin Dose 40 MG; Start 02/17/17 at 06:00 Aspirin (Aspirin) 81 mg DAILY PO Last administered on 02/21/17 08:42; Admin Dose 81 MG; Start 02/17/17 at 09:00 Quetiapine Fumarate (Seroquel) 50 mg HS PO Last administered on 02/20/17 20:44 ; Admin Dose 50 MG; Start 02/16/17 at 23:00 Docusate Sodium (Colace) 100 mg BID PO Last administered on 02/19/17 21:12; Admin Dose 100 MG; Start 02/16/17 at 23:00 Bisacodyl (Dulcolax) 5 mg DAILY PRN PO CONSTIPATION Last administered on 20:54; Admin Dose 5 MG; Start 02/16/17 at 22:00 Hydralazine HCl (Apresoline) 25 mg Q4 PRN PO ELEVATED SYSTOLIC BP; Start at 22:00 Amlodipine Besylate (Norvasc) 5 mg BID PO Last administered on 02/21/17 08:44 ; Admin Dose 5 MG; Start 02/16/17 at 23:00 Polyethylene Glycol (Miralax) 17 gm DAILY PO Last administered on 02/19/17 09: 34; Admin Dose 17 GM; Start 02/17/17 at 09:00 Magnesium Hydroxide (Milk Of Mag) 30 ml DAILY PRN PO CONSTIPATION Last administered on 02/19/17 06:01; Admin Dose 30 ML; Start 02/16/17 at 22:00 Morphine Sulfate (morphine) 2 mg Q8 PRN IV PAIN LEVEL 7-10; Start 02/16/17 at 22:00 Ferrous Sulfate (Ferrous Sulfate (Ec)) 325 mg DAILY PO Last administered on 08:42; Admin Dose 325 MG; Start 02/17/17 at 09:00 Acetaminophen (Tylenol Tab) 650 mg Q6H PRN PO PAIN AND OR ELEVATED TEMP Last administered on 02/19/17 21:11; Admin Dose 650 MG; Start 02/16/17 at 22:30 Bacitracin (Bacitracin Oint (Ud)) 1 applic AM TOP Last administered on 08:45; Admin Dose 1 APPLIC; Start 02/17/17 at 09:00 Heparin Sodium (Porcine) (Heparin (5000 Units/0.5 ml)) 5,000 unit Q12 SC Last administered on 02/21/17 08:53; Admin Dose 5,000 UNIT; Start 02/17/17 at 21:00 Hydralazine HCl (Apresoline) 25 mg TID PO Last administered on 02/21/17 08:42 ; Admin Dose 25 MG; Start 02/18/17 at 21:00 Bisacodyl (Dulcolax Supp) 10 mg DAILY PRN [place] CONSTIPATION Last administered on 02/19/17 23:58; Admin Dose 10 MG; Start 02/19/17 at 19:30 NORY FOSTER Feb 21, 2017 11:15
--- NOTE | 2017-02-21 18:07 | PN ---
DATE: 02/21/2017 SUBJECTIVE: The patient is lying in bed, overall comfortable and alert. PHYSICAL EXAMINATION: VITAL SIGNS: Temperature 97.8, pulse 78, respirations 18, blood pressure 159/70, saturation 96%. GENERAL: No acute distress. HEENT: Normocephalic, atraumatic. The patient is pale, cachectic looking. CARDIOVASCULAR: S1 and S2. Positive systolic ejection murmur heard throughout. LUNGS: Clear. ABDOMEN: Soft, nontender. EXTREMITIES: No clubbing, cyanosis, or edema. LABORATORY DATA: On 02/20/2017 were reviewed. BUN and creatinine was 46/1.39. Prealbumin was 13 o n admission. Stool for C. diff turned out to be negative. Also, urine culture and MRSA screening a re negative. MEDICATIONS: 1. Dulcolax p.r.n. 2. Hydralazine 25 t.i.d. 3. Heparin 5000 q.12h. 4. Aspirin 81 daily. 5. MiraLax 17 grams daily. 6. Ferrous sulfate 325 daily. 7. Bacitracin daily. 8. Protonix 40 mg daily. 9. Seroquel 50 at bedtime. 10. Colace 100 b.i.d. 11. Norvasc 5 mg b.i.d. 12. Tylenol p.r.n. 13. Zofran p.r.n. 14. Dulcolax p.r.n. 15. Hydralazine p.r.n. 16. Milk of magnesia. 17. Morphine p.r.n. ASSESSMENT AND PLAN: This is an 86-year-old [place] male with history of chronic kidney disease, d ementia, anemia, psychiatric disorder, status post left hip hemiarthroplasty secondary to fall. 1. Status post left hip hemiarthroplasty. Continue physical therapy, occupational therapy, and jack n control. 2. Continue deep vein thrombosis prophylaxis and gastrointestinal prophylaxis. 3. Anemia. Continue to monitor H and H, p.r.n. transfusion, on iron supplement. 4. Chronic kidney disease, observe. May consider fluid challenge and will monitor patient's p.o. i ntake and kidney function. 5. Moderate protein malnutrition. Dietitian to follow. Try to maximize the patient's nutrition st atus. 6. Psychiatric. Continue Seroquel at night. Mood appears to be stable. 7. Hypertension, on multiple medications including hydralazine, Norvasc. Blood pressure fluctuates from 120 to the 160s. Continue to monitor and titrate it up as needed. We will follow. Dictated By: KATY CORNEJO/LANI Conf#: [id number] DID#: [id number] CC: JUVENTINO CARR MD;*EndCC*
[2017-02-21 20:30] VITALS: BP 153/74; RESP 18
[2017-02-21] MEDS: QUETIAPINE 25 MG TAB PO SCH (20:47)
[2017-02-22] MEDS: PANTOPRAZOLE (EC) 40 MG TAB PO SCH (06:03)
[2017-02-22 07:30] VITALS: BP 119/66; RESP 20
[2017-02-22] MEDS: DOCUSATE SODIUM 100 MG CAP PO SCH ×2 (09:05→20:26)
[2017-02-22] MEDS: FERROUS SULFATE (EC) 325 MG TAB PO SCH (09:05)
[2017-02-22] MEDS: AMLODIPINE 5 MG TAB PO SCH ×2 (09:09→20:25)
[2017-02-22] MEDS: POLYETHYLENE GLYCOL 17 GM PACKET PO SCH (09:09)
[2017-02-22] MEDS: ASPIRIN 81 MG TAB PO SCH (09:10)
[2017-02-22] MEDS: BACITRACIN 0.9 GM OINT TOP SCH (09:10)
[2017-02-22] MEDS: HEPARIN 5,000 UNIT/0.5 ML SYG SC SCH ×2 (09:11→20:27)
--- NOTE | 2017-02-22 13:28 | CONS ---
Date/Time of Note Date/Time of Note DATE: 02/22/17 TIME: 13:27 Consult Date/Type/Reason Admit Date/Time Feb 16, 2017 at 20:53 Subjective following tactile/verbal cues Objective Vital Signs Date Time Temp Pulse Resp B/P Pulse Ox O2 Delivery O2 Flow Rate FiO2 02/21/17 20:30 97.6 79 18 153/74 99 Intake and Output 02/21/17 02/21/17 02/22/17 14:59 22:59 06:59 Intake Total 480 ml 240 ml 500 ml Balance 480 ml 240 ml 500 ml INTERDISCIPLINARY TEAM CONFERENCE BOWEL- Cont BLADDER-Cont SKIN- stage II healing OT- DRESSING-max BATHING-max TOILETING-max PT- BED MOBILITY-max TRANSFERS-max AMBULATION-max 20 feet SPEECH- COGNITION-max A/P- Interdisciplinary team conference held today. Please see interdisciplinary sheet. Working toward d.cGuera on 02/24 with post discharge follow up of physical therapy, occupational therapy. Results/Medications Result Diagram: 02/20/17 0545 02/20/17 0545 Medications Current Medications Ondansetron HCl (Zofran Inj) 4 mg Q4H PRN IV NAUSEA AND/OR VOMITING; Start at 22:00 Pantoprazole (Protonix Tab) 40 mg DAILY@06 PO Last administered on 02/22/17 06 :03; Admin Dose 40 MG; Start 02/17/17 at 06:00 Aspirin (Aspirin) 81 mg DAILY PO Last administered on 02/22/17 09:10; Admin Dose 81 MG; Start 02/17/17 at 09:00 Quetiapine Fumarate (Seroquel) 50 mg HS PO Last administered on 02/21/17 20:47 ; Admin Dose 50 MG; Start 02/16/17 at 23:00 Docusate Sodium (Colace) 100 mg BID PO Last administered on 02/22/17 09:05; Admin Dose 100 MG; Start 02/16/17 at 23:00 Bisacodyl (Dulcolax) 5 mg DAILY PRN PO CONSTIPATION Last administered on 20:54; Admin Dose 5 MG; Start 02/16/17 at 22:00 Hydralazine HCl (Apresoline) 25 mg Q4 PRN PO ELEVATED SYSTOLIC BP; Start at 22:00 Amlodipine Besylate (Norvasc) 5 mg BID PO Last administered on 02/22/17 09:09 ; Admin Dose 5 MG; Start 02/16/17 at 23:00 Polyethylene Glycol (Miralax) 17 gm DAILY PO Last administered on 02/22/17 09: 09; Admin Dose 17 GM; Start 02/17/17 at 09:00 Magnesium Hydroxide (Milk Of Mag) 30 ml DAILY PRN PO CONSTIPATION Last administered on 02/19/17 06:01; Admin Dose 30 ML; Start 02/16/17 at 22:00 Morphine Sulfate (morphine) 2 mg Q8 PRN IV PAIN LEVEL 7-10; Start 02/16/17 at 22:00 Ferrous Sulfate (Ferrous Sulfate (Ec)) 325 mg DAILY PO Last administered on 09:05; Admin Dose 325 MG; Start 02/17/17 at 09:00 Acetaminophen (Tylenol Tab) 650 mg Q6H PRN PO PAIN AND OR ELEVATED TEMP Last administered on 02/19/17 21:11; Admin Dose 650 MG; Start 02/16/17 at 22:30 Bacitracin (Bacitracin Oint (Ud)) 1 applic AM TOP Last administered on 09:10; Admin Dose 1 APPLIC; Start 02/17/17 at 09:00 Heparin Sodium (Porcine) (Heparin (5000 Units/0.5 ml)) 5,000 unit Q12 SC Last administered on 02/22/17 09:11; Admin Dose 5,000 UNIT; Start 02/17/17 at 21:00 Hydralazine HCl (Apresoline) 25 mg TID PO Last administered on 02/22/17 09:10 ; Admin Dose 25 MG; Start 02/18/17 at 21:00 Bisacodyl (Dulcolax Supp) 10 mg DAILY PRN [place] CONSTIPATION Last administered on 02/19/17 23:58; Admin Dose 10 MG; Start 02/19/17 at 19:30 JUVENTINO CARR MD Feb 22, 2017 13:28
--- NOTE | 2017-02-22 15:46 | PN ---
DATE: 02/22/2017 The patient seen, unfortunately she was noted to have increased abdominal distention. Will consider possible constipation. Stool softeners to be given. Will do also bladder scan to make sure there i s no postvoid residual. Case discussed with nursing staff in detail and will monitor him closely. PHYSICAL EXAMINATION: VITAL SIGNS: Temperature 97.6, pulse 79, respirations 18, blood pressure 152/74, saturation 99%. GENERAL: No acute distress. HEENT: Normocephalic, atraumatic. The patient is pale, frail. Temporal wasting. CARDIOVASCULAR: S1, S2, regular rate. LUNGS: Clear. ABDOMEN: Soft, distended. Slightly tympanic. EXTREMITIES: No clubbing, cyanosis, or edema. LABORATORY DATA: Dated February 20 reviewed. White count was 6.4, hemoglobin 10.5. BUN and creatinine was 46/1.39. Stool for C. diff on February 21 was negative. MEDICATIONS: Reviewed include the followin. Dulcolax p.r.n. 2. Hydralazine 25 t.i.d. 3. Heparin 5000 q.12h. 4. Aspirin 81 mg daily. 5. MiraLax 17 grams daily. 6. Ferrous sulfate 220 mg daily. 7. Bacitracin daily. 8. Protonix 40 mg daily. 9. Seroquel 50 at bedtime. 10. Colace 100 b.i.d. 11. Norvasc 5 mg b.i.d. 12. Tylenol p.r.n. 13. Zofran p.r.n. 14. Dulcolax p.r.n. 15. Hydralazine. 16. Milk of magnesia p.r.n. 17. Morphine p.r.n. ASSESSMENT AND PLAN: This is an 86-year-old [place] male with history of CKD, dementia, anemia, ps ychiatric disorder, status post left hip hemiarthroplasty secondary to fracture and fall. 1. Status post left hip hemiarthroplasty. Continue physical therapy, occupational therapy, pain co ntrol. Help with activities of daily living. 2. Continue deep vein thrombosis prophylaxis and gastrointestinal prophylaxis. 3. Abdominal distention, likely related for constipation. Stool softeners will be given again, tomy ck again for post-void residual. 4. Anemia. Monitor H and H stable. No need for transfusion. 5. Chronic kidney disease. Monitor electrolytes. 6. Moderate protein malnutrition. Try to maximize the patient's nutrition status. 7. Psychiatric. Continue Seroquel at night and this helps him for sleep. 8. Hypertension, better. Continue to monitor blood pressure in the 140s to 150s. We will follow. Dictated By: KATY CORNEJO/LANI Conf#: [id number] DID#: [id number]
[2017-02-22 19:34] VITALS: BP 139/66; RESP 19
[2017-02-22] MEDS: QUETIAPINE 25 MG TAB PO SCH (20:24)
--- NOTE | 2017-02-23 05:21 | RADRPT ---
PROCEDURE: XR Abdomen. CLINICAL INDICATION: Abdominal distension TECHNIQUE: 2 AP views of the abdomen were obtained COMPARISON: CT abdomen and pelvis dated 10/20/2016 FINDINGS: There is a nonobstructive bowel gas pattern. Moderate to large volume formed stool is seen throughou t the colon. There is a severely distended loop of bowel within the mid abdomen measuring 9.3 cm in diameter. No intraperitoneal free air or pneumatosis is identified. There is no evidence of organo megaly. No abnormal soft tissue calcifications are seen. The visualized portion of the lung bases are clear. The osseous structures demonstrate recent postsurgical changes from left total hip arthr oplasty. IMPRESSION: 1. Severely distended air filled loop of sigmoid colon measuring 9.3 cm in diameter. Consider CT of the abdomen pelvis for further evaluation, as clinically indicated. 2. Moderate to large volume formed stool throughout the colon, consistent with constipation. RPTAT: HH .Yanet Kothari MD, MD Date Time Electronically viewed and signed by .Yanet Kothari MD, on 02/23/2017 05:20 .G/
[2017-02-23 06:41] LABS: ADD SCAN DIFF NO
[2017-02-23] MEDS: PANTOPRAZOLE (EC) 40 MG TAB PO SCH (06:54)
[2017-02-23 06:57] LABS: BASOPHILS % 0.3 % (0.0-2.0); EOSINOPHILS # 0.1 10^3/ul (0.0-0.5); EOSINOPHILS % 1.7 % (0.0-7.0); HEMATOCRIT 31.5 % (42.0-52.0); HEMOGLOBIN 10.2 g/dl (14.0-18.0); LYMPHOCYTES # 1.5 10^3/ul (0.8-2.9); LYMPHOCYTES % 19.8 % (15.0-51.0); MEAN CORPUSCULAR HGB CONC 32.4 g/dl (32.0-37.0); MEAN CORPUSCULAR VOLUME 92.6 fl (82.0-101.0); MEAN PLATELET VOLUME 8.6 fl (7.4-10.4); MONOCYTE # 0.4 10^3/ul (0.3-0.9); MONOCYTES % 4.9 % (0.0-11.0); NEUTROPHIL # 5.6 10^3/ul (1.6-7.5); NEUTROPHILS % 72.8 % (39.0-77.0); PLATELET COUNT 582 10^3/UL (140-415); WHITE BLOOD COUNT 7.7 10^3/ul (4.8-10.8)
[2017-02-23 07:47] LABS: PHOSPHORUS 4.3 mg/dl (2.5-4.9)
[2017-02-23 07:48] LABS: MAGNESIUM 2.4 mg/dl (1.7-2.5)
[2017-02-23 08:02] LABS: ALBUMIN 3.4 g/dl (3.3-4.9); POTASSIUM 4.3 mmol/L (3.5-5.1)
[2017-02-23 08:04] VITALS: BP 154/69; RESP 18
[2017-02-23 08:05] LABS: ALBUMIN/GLOBULIN RATIO 0.91; BILIRUBIN,INDIRECT 0.4 mg/dl (0-1.1); BILIRUBIN,TOTAL 0.4 mg/dl (0.2-1.3); CALCIUM 8.8 mg/dl (8.4-10.2); CREATININE 1.52 mg/dl (0.61-1.24); TOTAL PROTEIN 7.1 g/dl (6.1-8.1)
[2017-02-23] MEDS: FERROUS SULFATE (EC) 325 MG TAB PO SCH (08:52)
[2017-02-23] MEDS: BACITRACIN 0.9 GM OINT TOP SCH (08:52)
[2017-02-23] MEDS: DOCUSATE SODIUM 100 MG CAP PO SCH ×2 (08:52→20:43)
[2017-02-23] MEDS: POLYETHYLENE GLYCOL 17 GM PACKET PO SCH (08:52)
[2017-02-23] MEDS: ASPIRIN 81 MG TAB PO SCH (08:53)
[2017-02-23] MEDS: AMLODIPINE 5 MG TAB PO SCH ×2 (08:55→20:43)
[2017-02-23] MEDS: HEPARIN 5,000 UNIT/0.5 ML SYG SC SCH ×2 (09:00→20:48)
--- NOTE | 2017-02-23 10:52 | CONS ---
Date/Time of Note Date/Time of Note DATE: 02/23/17 TIME: 10:52 Consult Date/Type/Reason Admit Date/Time Feb 16, 2017 at 20:53 Subjective Following commands with tactile cues Objective pulm-cta mod assist ambulation Vital Signs Date Time Temp Pulse Resp B/P Pulse Ox O2 Delivery O2 Flow Rate FiO2 02/23/17 08:04 98.0 66 18 154/69 98 Intake and Output 02/22/17 02/22/17 02/23/17 14:59 22:59 06:59 Intake Total 240 ml 100 ml Output Total 2 ml Balance 238 ml 100 ml Results/Medications Result Diagram: 02/23/17 0620 02/23/17 0620 Results 24 hrs Laboratory Tests Test 02/23/17 06:20 White Blood Count 7.7 # Red Blood Count 3.40 L Hemoglobin 10.2 L Hematocrit 31.5 L Mean Corpuscular Volume 92.6 Mean Corpuscular Hemoglobin 30.0 Mean Corpuscular Hemoglobin Concent 32.4 Red Cell Distribution Width 14.0 Platelet Count 582 #H Mean Platelet Volume 8.6 Neutrophils % 72.8 Lymphocytes % 19.8 Monocytes % 4.9 Eosinophils % 1.7 Basophils % 0.3 Nucleated Red Blood Cells % 0.0 Neutrophils # 5.6 Lymphocytes # 1.5 Monocytes # 0.4 Eosinophils # 0.1 Basophils # 0.0 Nucleated Red Blood Cells # 0.0 Sodium Level 133 L Potassium Level 4.3 Chloride Level 100 Carbon Dioxide Level 26 Anion Gap 11 Blood Urea Nitrogen 44 H Creatinine 1.52 H Glucose Level 100 Calcium Level 8.8 Phosphorus Level 4.3 Magnesium Level 2.4 Total Bilirubin 0.4 Direct Bilirubin 0.00 Indirect Bilirubin 0.4 Aspartate Amino Transf (AST/SGOT) 25 Alanine Aminotransferase (ALT/SGPT) 32 Alkaline Phosphatase 141 H Total Protein 7.1 Albumin 3.4 Globulin 3.70 H Albumin/Globulin Ratio 0.91 Medications Current Medications Ondansetron HCl (Zofran Inj) 4 mg Q4H PRN IV NAUSEA AND/OR VOMITING; Start at 22:00 Pantoprazole (Protonix Tab) 40 mg DAILY@06 PO Last administered on 02/23/17 06 :54; Admin Dose 40 MG; Start 02/17/17 at 06:00 Aspirin (Aspirin) 81 mg DAILY PO Last administered on 02/23/17 08:53; Admin Dose 81 MG; Start 02/17/17 at 09:00 Quetiapine Fumarate (Seroquel) 50 mg HS PO Last administered on 02/22/17 20:24 ; Admin Dose 50 MG; Start 02/16/17 at 23:00 Docusate Sodium (Colace) 100 mg BID PO Last administered on 02/23/17 08:52; Admin Dose 100 MG; Start 02/16/17 at 23:00 Bisacodyl (Dulcolax) 5 mg DAILY PRN PO CONSTIPATION Last administered on 20:54; Admin Dose 5 MG; Start 02/16/17 at 22:00 Hydralazine HCl (Apresoline) 25 mg Q4 PRN PO ELEVATED SYSTOLIC BP; Start at 22:00 Amlodipine Besylate (Norvasc) 5 mg BID PO Last administered on 02/23/17 08:55 ; Admin Dose 5 MG; Start 02/16/17 at 23:00 Polyethylene Glycol (Miralax) 17 gm DAILY PO Last administered on 02/23/17 08: 52; Admin Dose 17 GM; Start 02/17/17 at 09:00 Magnesium Hydroxide (Milk Of Mag) 30 ml DAILY PRN PO CONSTIPATION Last administered on 02/19/17 06:01; Admin Dose 30 ML; Start 02/16/17 at 22:00 Morphine Sulfate (morphine) 2 mg Q8 PRN IV PAIN LEVEL 7-10; Start 02/16/17 at 22:00 Ferrous Sulfate (Ferrous Sulfate (Ec)) 325 mg DAILY PO Last administered on 08:52; Admin Dose 325 MG; Start 02/17/17 at 09:00 Acetaminophen (Tylenol Tab) 650 mg Q6H PRN PO PAIN AND OR ELEVATED TEMP Last administered on 02/19/17 21:11; Admin Dose 650 MG; Start 02/16/17 at 22:30 Bacitracin (Bacitracin Oint (Ud)) 1 applic AM TOP Last administered on 08:52; Admin Dose 1 APPLIC; Start 02/17/17 at 09:00 Heparin Sodium (Porcine) (Heparin (5000 Units/0.5 ml)) 5,000 unit Q12 SC Last administered on 02/23/17 09:00; Admin Dose 5,000 UNIT; Start 02/17/17 at 21:00 Hydralazine HCl (Apresoline) 25 mg TID PO Last administered on 02/23/17 08:55 ; Admin Dose 25 MG; Start 02/18/17 at 21:00 Bisacodyl (Dulcolax Supp) 10 mg DAILY PRN [place] CONSTIPATION Last administered on 02/19/17 23:58; Admin Dose 10 MG; Start 02/19/17 at 19:30 Assessment/Plan Additional Assessment/Plan Rehab- Left subcapital hip fracture with displacement, status post hemiarthroplasty. Continue rehab activities, increase as tolerated Anemia. Dysphagia-speech therapy Hypertension. History of psychiatric disorder. Urinary tract infection. Coronary artery disease. JUVENTINO CARR MD Feb 23, 2017 10:52
[2017-02-23] MEDS ORDERED: MAGNESIUM CITRATE 300 ML BTL PO PRN (12:30)
[2017-02-23] MEDS ORDERED: BISACODYL (EC) 5 MG TAB PO ONE (12:30)
--- NOTE | 2017-02-23 13:51 | PN ---
DATE: SUBJECTIVE: The patient seen. Case discussed in detail with nursing staff. This patient's KUB nato wed severe obstipation. Also, he [place] [facility] [place] I proceeded with a CT scan w [facility], [place] confirmed constipation. Stool softeners will be given. Also noted slightly increased BUN and creatinine. Overall, the patient with no specific complaints. Case discussed as well with Dr. Deja kwan regarding placement. OBJECTIVE: VITAL SIGNS: Temperature 98, pulse 66, respirations 18, blood pressure 154/69, saturation 98% on ro om air. GENERAL: The patient in no acute distress, frail, pale. CARDIOVASCULAR: S1, S2, regular rate. Positive systolic ejection murmur. LUNGS: Clear. ABDOMEN: Soft, slightly distended, but pain. EXTREMITIES: There is no clubbing, cyanosis, or edema. LABORATORY DATA: White count 7.7, hemoglobin 10.2, hematocrit 32, platelet count 582; neutrophils 73%, lymphocytes 20%. Chemistry: Sodium 132, potassium 4.3, chloride 100, bicarb 26, BUN is 44, cr eatinine 1.52, glucose 100, phosphorus 4.2, magnesium 2.4, AST 25, ALT 32, alk phos 141, albumin 3. 4. Stool for C. diff is negative on 02/21/2017. KUB shows severely distended air-fluid loop of sigmoid colon measuring 9.3 cm in diameter. Consider CT of the abdomen and pelvis for further evaluation if clinically indicated. Moderate to large vol ume of formed stools throughout the colon consistent with constipation. ASSESSMENT AND PLAN: This is an 86-year-old Iranian male with history of chronic kidney disease, d ementia, anemia, psychiatric disorder, status post left hip hemiarthroplasty secondary to fracture w ith the followin. Status post left hip hemiarthroplasty. Continue physical therapy, occupational therapy, pain co ntrol. Help with activities of daily living. 2. Dementia and psychiatric disorder. This also somewhat limits his progress with physical therapy . 3. Continue deep vein thrombosis prophylaxis and gastrointestinal prophylaxis. 4. Acute renal failure. The patient likely not drinking enough; likely prerenal azotemia. The pat ient will be hydrated with normal saline overnight and will monitor. 5. Severe obstipation. Stool softeners will be given. Monitor bowel movements. 6. Moderate protein malnutrition. Try to maximize the patient's nutrition status. Dietitian is kishan solorzano. 7. Psychiatric. Continue Seroquel at night. 8. Hypertension. Blood pressure is in the 110s to the 150s. Continue the same medications for now . 9. Disposition: Soon. Discuss with Dr. Yan. Will discuss with family as well. We will follow. Dictated By: KATY CORNEJO/LANI Conf#: [id number] DID#: [id number]
[2017-02-23] MEDS ORDERED: NA PHOSPHATE/BIPHOS 133 ML ENEMA PR ONE (14:30)
[2017-02-23] MEDS: SOD CHLORIDE 0.9% 1,000 ML IV SCH (14:56)
[2017-02-23 19:28] VITALS: BP 149/74; RESP 20
[2017-02-23] MEDS: QUETIAPINE 25 MG TAB PO SCH (20:44)
[2017-02-24] MEDS: PANTOPRAZOLE (EC) 40 MG TAB PO SCH (05:34)
[2017-02-24] MEDS: SOD CHLORIDE 0.9% 1,000 ML IV SCH (06:07)
[2017-02-24 06:49] LABS: ADD SCAN DIFF NO
[2017-02-24 06:54] LABS: BASOPHILS % 0.2 % (0.0-2.0); EOSINOPHILS # 0.2 10^3/ul (0.0-0.5); EOSINOPHILS % 1.5 % (0.0-7.0); HEMATOCRIT 30.6 % (42.0-52.0); HEMOGLOBIN 9.8 g/dl (14.0-18.0); LYMPHOCYTES # 1.5 10^3/ul (0.8-2.9); LYMPHOCYTES % 13.9 % (15.0-51.0); MEAN CORPUSCULAR HEMOGLOBIN 30.1 pg (29.0-33.0); MEAN CORPUSCULAR VOLUME 93.9 fl (82.0-101.0); MEAN PLATELET VOLUME 8.6 fl (7.4-10.4); MONOCYTE # 0.5 10^3/ul (0.3-0.9); MONOCYTES % 4.9 % (0.0-11.0); NEUTROPHIL # 8.7 10^3/ul (1.6-7.5); PLATELET COUNT 576 10^3/UL (140-415); RED BLOOD COUNT 3.26 10^6/ul (4.70-6.10); RED CELL DISTRIBUTION WIDTH 14.1 % (11.5-14.5)
[2017-02-24 07:08] LABS: POTASSIUM 4.6 mmol/L (3.5-5.1)
[2017-02-24 07:10] LABS: CREATININE 1.46 mg/dl (0.61-1.24)
[2017-02-24 07:11] LABS: CALCIUM 8.6 mg/dl (8.4-10.2)
[2017-02-24 07:15] LABS: MAGNESIUM 2.3 mg/dl (1.7-2.5); PHOSPHORUS 4.4 mg/dl (2.5-4.9)
[2017-02-24] MEDS: FERROUS SULFATE (EC) 325 MG TAB PO SCH (08:57)
[2017-02-24] MEDS: ASPIRIN 81 MG TAB PO SCH (08:57)
[2017-02-24] MEDS: BACITRACIN 0.9 GM OINT TOP SCH (08:57)
[2017-02-24] MEDS: POLYETHYLENE GLYCOL 17 GM PACKET PO SCH (08:57)
[2017-02-24] MEDS: DOCUSATE SODIUM 100 MG CAP PO SCH (08:58)
[2017-02-24] MEDS: AMLODIPINE 5 MG TAB PO SCH (08:59)
[2017-02-24] MEDS: HEPARIN 5,000 UNIT/0.5 ML SYG SC SCH (09:01)
[2017-02-24 09:52] VITALS: BP 158/69; RESP 18
--- NOTE | 2017-02-24 16:58 | CONS ---
DATE OF ADMISSION: 02/16/2017 DATE OF CONSULTATION: Psychology - Individual Session - [id number]. This is a followup on a patient who was seen last week. The patient was seen in bed. The patient i s experiencing some depression, and it relates to his medical condition. The patient is having some dementia, and it is impairing his ability to handle things for himself. The patient is aware that he is not functioning well and is frustrated by this. I worked with the patient supportively in [facility] to trying to help him see that he can work with his physical health as much as possible to try t o get himself stronger so that he can return to his previous level of functioning and return to his assisted living situation or live back with his family. Dictated By: DALIA CARIAS PHD SHARMILA/LANI Conf#: [id number] DID#: [id number]
== END 2017-02-24 13:30 | disposition home or self-care (01) | DRG 560 ==
LOC: VRC 20:53
PROVIDERS: ADMIT Physical Medicine & Rehabilitation; ATTEND Internal Medicine
DX: Z47.1 Aftercare following joint replacement surgery (principal); N39.0 Urinary tract infection, site not specified; E44.0 Moderate protein-calorie malnutrition; R13.10 Dysphagia, unspecified; F03.90 Unspecified dementia, unspecified severity, without behavioral disturbance, psychotic disturbance, mood disturbance, and anxiety; Z96.642 Presence of left artificial hip joint; D64.9 Anemia, unspecified; I10 Essential (primary) hypertension; I25.10 Atherosclerotic heart disease of native coronary artery without angina pectoris; G31.84 Mild cognitive impairment of uncertain or unknown etiology; I12.9 Hypertensive chronic kidney disease with stage 1 through stage 4 chronic kidney disease, or unspecified chronic kidney disease; N18.9 Chronic kidney disease, unspecified; F06.31 Mood disorder due to known physiological condition with depressive features; Z68.20 Body mass index [BMI] 20.0-20.9, adult; G89.18 Other acute postprocedural pain
CPT/HCPCS: 74000; 80048; 80053; 81001; 81003; 83735; 84100; 84134; 85025; 87075; 87081; 87086; 92507; 92523; 92526; 92610; 97110; 97112; 97116; 97150; 97163; 97167; 97530; 97535; 97542; J1644; J7030

== ENCOUNTER 2018-01-31 15:34 | Inpatient (IN) | END 2018-02-08 20:15 | DRG 470 ==